=== PATIENT | male | born 1970 | race Caucasian/White ===

== ENCOUNTER → 2024-03-26 09:52 | Outpatient (REF) | payer BC, SELFPAY | LOC: RAD 09:52 | PROVIDERS: ATTENDING PHYSICIAN Urology; FAMILY PHYSICIAN Physician Assistant Medical | DX: C62.12 Malignant neoplasm of descended left testis (principal); N50.89 Other specified disorders of the male genital organs | CPT/HCPCS: 71046; 74178; Q9967 ==

== ENCOUNTER 2024-06-30 02:48 | Emergency (ER) | payer SELFPAY ==
[2024-06-30 02:56] VITALS: BP 201/103
--- NOTE | 2024-06-30 03:13 | ED.GENMED ---
History of Present Illness
<REKHA Langston - Last Filed: 06/30/24 06:20>
General
Chief Complaint: Post Operative Problem(s)
Source: patient and spouse
Time Seen by Provider: 06/30/24 03:13
History of Present Illness
History of Present Illness:
A 53 yo Male who is POD 5 from a c5-c6 laminectomy at [facility], [place] presents to the ED for uncontrolled pain. He states that his pain had been mildly improving over the last few days, but that it becomes uncontrolled when moving from the
sitting to supine position. The patients is present and had said that she had called the surgeon previously during the week to help with the pain control since he was still struggling postoperatively. He stated that his pain was slowly
decreasing to a 4/10 until this morning where it spiked to 10/10 pain. He was taking 5mg oxycodone, but was told to increase dose to 10 mg to which he kept taking the 5mg. He also reports increased blood pressure over the past 5 days since his
surgery to which his called his senior technical analyst who prescribed him hydralazine to take while recovering. The reported his blood pressure at home was 197/96 mmHg . She also reported a fever of 100.2 F while a home, but here in the ED his temp
was 98.1 F orally. He reports no HARTMAN, Dizziness, N/V, vision changes, extremity pain, changes in radiculopathy symptoms from baseline.
He has a PMH of HTN, HLD, [place] in 2018, Spinal abscess 2017, thoracic laminectomy t4-9 testicular cancer 2022, ocular stroke 2023.
Past History
<REKHA Langston - Last Filed: 06/30/24 06:20>
Past History
ED Past Medical History: HTN and Other (Cervical disc disease, epidural abscess)
ED Past Surgical History: Orthopedic, Tonsilectomy and Other (Pilonidal cyst removal)
Social History
Tobacco: Non-smoker
Alcohol: Occasional
Drug: None
Personal:
Living: with family
Employment: Employed
Family History
Family History: Other (Noncontributory)
Review of Systems
<REKHA Langston - Last Filed: 06/30/24 06:20>
Review of Systems
Allergies reviewed?: Yes
All Other Systems: ROS reviewed and negative except as documented in HPI and ROS
Phy Exam
<REKHA Langston - Last Filed: 06/30/24 06:20>
General Physical Exam
General Presentation: well appearing and moderate distress (when moving, otherwise appears peaceful while supine )
General age: appears stated age
General Skin: warm and dry
General Habitus: obese
General Mental: alert
General Hydration: appears well hydrated
Eye Exam
Eye Exam: PERRL
Cardiovascular Exam
Cardiovascular Exam: regular rate/rhythm, no gallop and no murmur
Pulmonary Exam
Pulmonary Exam: lungs clear, no respiratory distress, no rales, no crackles, no rhonchi, no wheezing and no cough
Musculoskeletal Exam
Musculoskeletal Exam: neck pain, back pain, back tenderness and other (reduced cervical AROM, reduced should AROM, decreased sensation abdomen, right LE. Decreased sensation UR bilaterally. )
Skin Exam
Skin Exam: normal color, warm/dry and other (Posterior cervical incision is CDI w/ appropriate tenderness to palpation. No shadowing on dressing. No erythema, edema, or discharge was noted. )
Psychiatric Exam
Psychiatric Exam: normal mood/affect
Course
<REKHA Langston - Last Filed: 06/30/24 06:20>
Orders/Labs/Results
Orders:
Orders
06/30/24 03:56
EKG [Electrocardiogram (*1)] Urgent
Reason for Study: Hypertension, Benign
06/30/24 04:11
Morphine Sulfate 6 mg IV NOW STA
06/30/24 04:36
BMP [Basic Metabolic Panel] Urgent
CBC/With Diff [Complete Blood Count/With Diff] Urgent
06/30/24 06:02
Ketorolac [Toradol] 15 mg IV NOW STA
Abnormal Lab Results
06/30/24
04:36
WBC 10.9 H 10^3/uL
(4.8-10.8)
RBC 4.51 L 10^6/uL
(4.70-6.10)
RDW 14.6 H %
(11.5-14.5)
Abs Immat Gran (auto) 0.1 H 10^3/uL
(0-0.05)
Absolute Neuts (auto) 6.7 H 10^3/uL
(1.4-6.5)
Absolute Monos (auto) 1.0 H 10^3/uL
(0.1-0.6)
Glucose 104 H mg/dl
(70-99)
06/30/24 04:36
06/30/24 04:36
Vital Signs
Initial and Last Documented VS:
Initial Vital Signs
Pulse Resp Pulse Ox
79 20 96
06/30/24 02:51 06/30/24 02:51 06/30/24 02:51
Last Documented Vital Signs
Pulse Resp BP Pulse Ox
85 20 201/103 98
06/30/24 02:56 06/30/24 02:51 06/30/24 02:56 06/30/24 02:56
<Gilma Avelar MD - Last Filed: 06/30/24 06:05>
Orders/Labs/Results
Orders:
Orders
06/30/24 03:56
EKG [Electrocardiogram (*1)] Urgent
Reason for Study: Hypertension, Benign
06/30/24 04:11
Morphine Sulfate 6 mg IV NOW STA
06/30/24 04:36
BMP [Basic Metabolic Panel] Urgent
CBC/With Diff [Complete Blood Count/With Diff] Urgent
06/30/24 06:02
Ketorolac [Toradol] 15 mg IV NOW STA
Abnormal Lab Results
06/30/24
04:36
WBC 10.9 H 10^3/uL
(4.8-10.8)
RBC 4.51 L 10^6/uL
(4.70-6.10)
RDW 14.6 H %
(11.5-14.5)
Abs Immat Gran (auto) 0.1 H 10^3/uL
(0-0.05)
Absolute Neuts (auto) 6.7 H 10^3/uL
(1.4-6.5)
Absolute Monos (auto) 1.0 H 10^3/uL
(0.1-0.6)
Glucose 104 H mg/dl
(70-99)
06/30/24 04:36
06/30/24 04:36
Vital Signs
Initial and Last Documented VS:
Initial Vital Signs
Pulse Resp Pulse Ox
79 20 96
06/30/24 02:51 06/30/24 02:51 06/30/24 02:51
Last Documented Vital Signs
Pulse Resp BP Pulse Ox
85 20 201/103 98
06/30/24 02:56 06/30/24 02:51 06/30/24 02:56 06/30/24 02:56
<REKHA Langston - Last Filed: 06/30/24 06:20>
MDM/Problems Addressed
Differential Diagnosis Includes:
Surgical site infection, muscle spasms, htn emergency
MDM/Problems Addressed:
Due to patients history of surgical spinal abscess post epidural, recent surgery, and low grade temperature, surgical site infection was considered, but his WBC was 10.9 just above the UL of normal. Suspected post operative inflammation.
Muscle spasms are considered in the differential due to uncontrolled cervical neck pain, upper back pain, trapezius pain and is refractory to tizanidine.
HTN emergency is considered in the differential due to BP being 201/103, but EKG demonstrated anterolateral infarct consistent with patient history and is unchanged from previous ekg. Chemistry demonstrated BUN of 13 and a creatinine of 0.8. The
patient denies any HARTMAN, vision changes, tinnitus. HTN emergency is unlikely as there are currently no signs of end organ damage.
<REKHA Langston - Last Filed: 06/30/24 06:20>
*Critical Care Note
Total Time (30-74mins, 75-104mins- exclusive of procedures): Not Applicable
<REKHA Langston - Last Filed: 06/30/24 06:20>
Update Note
Update Note:
0526: 06/30/2024: patient was getting his EKG when i walked in the room. He appears tired, relaxed, but comfortable. He currently states his pain is 1/10. Will continue to monitor with Dr. Avelar.
ED Attending Note
<REKHA Langston - Last Filed: 06/30/24 06:20>
-
Portions of this chart may have been created with voice recognition software.� Occasional wrong word or��sound alike� substitutions may have occurred due to the inherent limitations of voice recognition software.
<Gilma Avelar MD - Last Filed: 06/30/24 06:05>
ED Attending Note
Patient seen and examined by attending physician: Yes
I performed the substantive portion of visit, reviewed & personally made and approve the management plan that is documented in note by myself or [place].: Yes
ED Attending Note:
53-year-old male presents to the emergency department postoperative day 5 after a C5-6 laminectomy. Patient states he has been having issues with pain management since he was discharged. He called the office on because his pain was poorly
controlled and he noted his blood pressure was elevated. He was instructed to take his oxycodone at a dose of 10 mg every 4 that that that he had been taking at 5 mg every 6. He again noted that his pain was poorly controlled today and his blood
pressure was elevated. He called his senior technical analyst and was given a additional blood pressure medication to help control his pressure. Tonight, his pain was particularly worse which prompted his visit here. He last took oxycodone at approximately
midnight. Patient denies chest pain or pressure, shortness of breath, abdominal pain, new numbness or tingling. His checked his temperature and the highest was 100.2 with her home thermometer. He describes pain as he has had since the
postoperative time. In his trapezius area and neck. Sometimes it will radiate to his arms bilaterally. He denies new weakness. On exam, patient overall well-appearing and pleasant. He spontaneously will nod yes and no, no nuchal rigidity noted,
airway patent, no stridor or drool. Heart regular rate and rhythm, lungs CTA. Dressing removed from surgical site, area is clean dry intact without edema, tenderness, discharge, redness, warmth, etc. Patient remains at neurological baseline and
is equal and strong. Suspect hypertension related to poor pain management. Will check labs, EKG, and give pain medication at this time.
Reassessment, long convo with pt and . 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 I personally spoke to , who reiterates this, does not have any contact info/alternative to
reach a client consultant. I would like to d/w them pts sxs/pain management, etc. I do not think pt has an emergent/worrisome compication such as infx. No fever, wound well appearing,e tc. Sl leukocytosis expected post surgery. I suspect bp elevation
due to poor pain management, we discussed 10 mg oxycodone q4h atc, as well as motrin (as long as no nsaid contraindication, they specifically state none identified by surgeon). Bp has naturally come down somewhat since pain meds which he now rates
a 09/14. Nontoxic. D/w pt import of f/u and reason s to rted.
Discharge Plan
Departure
Patient Disposition: Home (Routine Discharge)
Date of Disposition: 06/30/24
Time of Disposition: 06:02
Patient with high blood pressure during this ER visit?: Yes
Condition: Good
Discharge Problem:
Hypertension, NECK PAIN
Instructions: Postoperative Pain (DC), BLOOD PRESSURE
Prescriptions:
No Action
multivitamin [One Daily Multivitamin] 1 EACH tablet
1 ea PO DAILY
docusate sodium 100 MG capsule
100 mg PO DAILY PRN (Reason: constiption)
pregabalin 75 MG capsule
75 mg Daily
Aspirin
81 mg PO DAILY
Patient Comments:
coated
atorvastatin 40 MG tablet
40 mg PO QPM Qty: 30 6RF
lisinopril 10 MG tablet
10 mg PO DAILY Qty: 30 6RF
Rx Instructions:
this is a change from your previous combination pill
metoprolol succinate 12.5 MG tablet extended release 24 hr
12.5 mg PO DAILY Qty: 30 6RF
ticagrelor [Brilinta] 90 MG tablet
90 mg PO BID Qty: 60 11RF
amoxicillin-pot clavulanate 875-125 mg tablet
1 tab PO BID 10 Days Qty: 20 0RF
Referrals:
Franc Wheat MD [Active] - Next open appointment
Aidne Flores DO [Family Provider] -
Activity Restrictions/Additional Instructions:
IF YOU DEVELOP NEW CHEST PAIN, DIFFICULTY BREATHING, FEVER, REDNESS AROUND YOUR INCISION SITE, PUS DRAINAGE FROM INCISION SITE, NEW PARESTHESIAS, ARM OR LEG WEAKNESS, PLEASE RETURN TO THE ER IMMEDIATELY
Interventions
Interventions:
*Risk Screen - Suicide Last Done: 06/30/24 02:51
*Neglect/Abuse Screening Last Done: 06/30/24 02:51
Discharge Date and Time
Print Language: SCOTTISH
[2024-06-30] MEDS: MORPHINE SULFATE 6 MG IV (04:25)
[2024-06-30 05:19] LABS: % Basophils 0.8 % (0-2); % Eosinophils 4.6 % (0-6); % Immature Granulocytes 0.5 % (0-0.5); % Lymphocytes 23.4 % (20.5-51.1); % Monocytes 9.3 % (1.7-9.3); % Neutrophils 61.4 % (42.2-75.2); Absolute Basophils 0.1 10^3/uL (0-0.2); Absolute Eosinophils 0.5 10^3/uL (0-0.7); Absolute Immature Granulocytes 0.1 10^3/uL (0-0.05); Absolute Lymphocytes 2.6 10^3/uL (1.2-3.4); Absolute Neutrophils 6.7 10^3/uL (1.4-6.5); Hematocrit 41.1 % (39.0-52.0); Mean Corp Hgb Conc. 34.1 g/dL (33.0-37.0); Mean Corpuscular Volume 91.1 fL (80.0-94.0); Mean Platelet Volume 9.9 fL (7.4-10.4); Nucleated Red Blood Cells % 0 % (-); Platelet Count 321 10^3/uL (130-400); Red Blood Cell Count 4.51 10^6/uL (4.70-6.10); Red Cell Dist. Width 14.6 % (11.5-14.5); White Blood Cell Count 10.9 10^3/uL (4.8-10.8)
[2024-06-30 05:38] LABS: Blood Urea Nitrogen 12 mg/dl (9-20); Calcium 9.4 mg/dl (8.4-10.2); Carbon Dioxide 25 mmol/L (22-30); Chloride 100 mmol/L (98-107); Glucose 104 mg/dl (70-99); Potassium 4.9 mmol/L (3.5-5.1); Sodium 139 mmol/L (135-145); eGFR > 60.00
[2024-06-30 06:00] VITALS: BP 151/85
[2024-06-30] MEDS: TORADOL 15 MG IV (06:21)
== END 2024-06-30 06:41 | disposition home or self-care (01) ==
LOC: EMR 02:48
PROVIDERS: EMERGENCY PHYSICIAN Emergency Medicine; FAMILY PHYSICIAN Family Medicine Sports Medicine
DX: M54.2 Cervicalgia (principal); M54.9 Dorsalgia, unspecified; G89.18 Other acute postprocedural pain; I10 Essential (primary) hypertension; M50.90 Cervical disc disorder, unspecified, unspecified cervical region; E78.5 Hyperlipidemia, unspecified; I25.2 Old myocardial infarction; Z85.47 Personal history of malignant neoplasm of testis; Z86.73 Personal history of transient ischemic attack (TIA), and cerebral infarction without residual deficits
CPT/HCPCS: 99284; 96374; 96375; 80048; 85025; 93005

== ENCOUNTER → 2024-09-17 09:13 | Outpatient (REF) | payer BC, SELFPAY | LOC: RAD 09:13 | PROVIDERS: ATTENDING PHYSICIAN Urology; FAMILY PHYSICIAN Physician Assistant Medical | DX: N50.89 Other specified disorders of the male genital organs (principal); C82.12 Follicular lymphoma grade II, intrathoracic lymph nodes | CPT/HCPCS: 71046; 74178; Q9967 ==

== ENCOUNTER → 2024-11-19 07:04 | Outpatient (REF) | payer BC, SELFPAY | LOC: HWRCS 07:04 | PROVIDERS: ATTENDING PHYSICIAN Nuclear Medicine Nuclear Cardiology; FAMILY PHYSICIAN Physician Assistant Medical | DX: I25.10 Atherosclerotic heart disease of native coronary artery without angina pectoris (principal); E78.5 Hyperlipidemia, unspecified | CPT/HCPCS: 78452; 93017; A9500 ==

== ENCOUNTER → 2025-04-15 08:06 | Outpatient (REF) | payer BC, SELFPAY | LOC: RAD 08:06 | PROVIDERS: ATTENDING PHYSICIAN Urology; FAMILY PHYSICIAN Physician Assistant Medical | DX: C62.12 Malignant neoplasm of descended left testis (principal) | CPT/HCPCS: 71046; 74178; Q9967 ==